=== PATIENT | female | born 2000 | race African-American/Black ===

== ENCOUNTER 2024-06-13 21:40 | Emergency (ER) | payer SELFPAY ==
[~2024-06-13] VITALS: Ht 175.3 cm; Wt 122.7 kg
[2024-06-13 21:43] VITALS: TEMP 98.8
[2024-06-13] MEDS ORDERED: NS 1,000 ML IV ONE (22:00)
[2024-06-13] MEDS ORDERED: Ondansetron 4 MG/2 ML VIAL IV ONE (22:00)
[2024-06-13 22:10] LABS: HEMATOCRIT 39.6 % (37.0-47.0); HEMOGLOBIN 13.8 g/dl (12.5-16.0); MEAN CELL VOLUME 83 fl (80.0-100.0); MEAN CORPUSCULAR HEMOGLOBIN 29 pg (27-31); MEAN CORPUSCULAR HGB CONC 35 g/dl (33.0-37.0); MEAN PLATELET VOLUME 9.2 fl (7.4-10.4); PLATELET COUNT 344 K/mm3 (130-400); RED BLOOD COUNT 4.76 M/mm3 (4.10-5.30); REDCELL DISTRIBUTION WIDTH-CV 12.1 % (11.5-14.5)
[2024-06-13 22:29] LABS: ALBUMIN 3.5 g/dL (3.5-5.0); BILIRUBIN,TOTAL 0.8 mg/dL (0.2-1.2); CREATININE, serum 0.8 mg/dL (0.57-1.11); POTASSIUM 4.2 mEq/L (3.5-4.5); TOTAL PROTEIN 7.6 g/dl (6.2-8.1)
[2024-06-13 22:49] LABS: BAND 2 % (0-10); LYMPHOCYTE 7 % (20.0-51.0); NEUTROPHILS 89 % (42.0-75.2)
[2024-06-13 23:06] LABS: URINE APPEARANCE CLEAR (CLEAR/HAZY); URINE BLOOD NEGATIVE (NEGATIVE); URINE COLOR YELLOW (YELLOW); URINE GLUCOSE NEGATIVE (NEGATIVE); URINE KETONE 3+ (NEGATIVE); URINE NITRATE NEGATIVE (NEGATIVE); URINE PROTEIN(semi-quant) 1+ (NEGATIVE); URINE UROBILINOGEN 0.2 E.U/dL (0.2-1.0)
[2024-06-13 23:21] LABS: COLLECTION METHOD CLEAN CATCH
[2024-06-13 23:47] VITALS: BP 128/80; PULSE 90
== END 2024-06-13 23:51 | disposition home or self-care (01) ==
LOC: COL.ER 21:40
PROVIDERS: Nurse Practitioner Primary Care
DX: K52.9 Noninfective gastroenteritis and colitis, unspecified (principal)
CPT/HCPCS: J2405; J7030

== ENCOUNTER 2024-07-20 14:58 | Emergency (ER) | payer SELFPAY ==
[~2024-07-20] VITALS: Ht 175.3 cm; Wt 104.5 kg
[2024-07-20 18:36] VITALS: TEMP 98
[2024-07-20] MEDS ORDERED: BACTRIM DS 8001 TAB PO (18:44)
[2024-07-20] MEDS ORDERED: Sulfamethoxazole/Trimethoprim 800-160 MG TAB PO ONE (18:45)
[2024-07-20] MEDS ORDERED: NORCO 325 MG-51 TAB PO (19:36)
[2024-07-20] MEDS ORDERED: Home HYDROcodone/Acetaminophen 5/325 MG #4 TABS/PACK PO ONE (19:45)
[2024-07-20 20:05] VITALS: BP 137/97; PULSE 98
== END 2024-07-20 20:06 | disposition home or self-care (01) ==
LOC: COL.ER 14:58
DX: L05.01 Pilonidal cyst with abscess (principal)